=== PATIENT | female | born 1965 | race Caucasian/White ===

== ENCOUNTER 2018-11-27 13:06 | Outpatient (CLI) | payer BC ==
[~2018-11-27 13:06] MED LIST: Iopamidol 370 76% 100 ML VIAL ONE
--- NOTE | 2018-11-27 15:07 | CT ---
CT ABDOMEN AND PELVIS WITH AND WITHOUT IV CONTRAST: 11/27/2018 PROVIDED CLINICAL HISTORY: Microhematuria. FINDINGS: The visualized lung bases are free of significant opacity. There is no evidence for urinary tract calculi or hydronephrosis. The kidneys demonstrate no evidenc e for mass. The delayed images demonstrate no evidence for a filling defect involving the renal laura ecting systems, segmentally opacified ureters, or urinary bladder. The liver, spleen, pancreas, and adrenal glands demonstrate an unremarkable CT appearance. There is enlargement of the uterus with multiple foci of hypodensity within the myometrium, likely re flecting fibroids. There is no bowel dilatation, inflammatory fat stranding, free fluid, or lymph no de enlargement apparent. The osseous structures demonstrate no concerning osteoblastic or osteolytic lesions. IMPRESSION: 1. An etiology for the patient's hematuria is not evident on this examination. 2. Enlargement and probable fibroid change involving the uterus. POS: [facility]
== END 2018-11-27 13:07 | disposition home or self-care (01) ==
LOC: BICCT 13:06
PROVIDERS: ATTEND Urology
DX: R35.0 Frequency of micturition (principal); R39.11 Hesitancy of micturition; N85.2 Hypertrophy of uterus
CPT/HCPCS: 74178; Q9967

== ENCOUNTER 2019-01-07 09:30 | Inpatient (IN) | payer BC ==
--- NOTE | 2019-01-07 08:13 | HP ---
She is scheduled for a robotic hysterectomy on 01/08/2019. HISTORY OF PRESENT ILLNESS: Ms. Xiong is a 53-year-old white female, G0, who presented for evaluation in my office for recently diagnosed large uterine fibroids seen on CAT scan performed by Dr. Coughlin of [facility]. The patient has been evaluated for noticing increasing urinary frequency and pelvic pressure symptoms over the past year or so. During evaluation, CAT scan was performed showing her to have enlarged uterus with no adnexal masses. She has also been having some postmenopausal bleeding and had endometrial biopsy performed in my office on 12/04, showed her to have a benign uterine polyp. She had a pelvic ultrasound in my office showing her uterus to measure 12.7 x 10.7 x 10 cm with 8.6 x 6.5 cm fundal fibroid and 2.5 x 1.8 x 2.3 cm anterior fibroid. There were no adnexal masses seen. She also reports a normal Pap smear past year by her primary care provider, Dr. Luna Marlow. Due to these findings and her symptoms of the pelvic fullness and urinary frequency attributable to the pelvic mass effect of the uterus in the lower uterine segment polyp, she desires definitive surgical therapy. PAST MEDICAL HISTORY: Significant for chronic hypertension and hypothyroidism and also gout in the past. PAST SURGICAL HISTORY: Elective tubal ligation. She has also had tonsillectomy in the past. FAMILY HISTORY: Significant for carcinoma in situ esophagus in her father and lung cancer in her father. Her mother has had some malignant skin cancers. SOCIAL HISTORY: She is a nonsmoker. No excessive alcohol use. She is . CURRENT MEDICATIONS: 1. Allopurinol 100 mg tablet, take 1-1/2 tablets once daily for gout prevention. 2. She also is on levothyroxine 150 mcg daily. 3. Lisinopril 20 mg/hydrochlorothiazide 12.5 mg daily for hypertension. PHYSICAL EXAMINATION: VITAL SIGNS: Her height is 5 feet 4 inches, weight 262 pounds with a BMI of 45. Blood pressure is 120/72, pulse 80, and respirations are 18, O2 saturation on room air is 98%. HEENT: Within normal limits. Clear to auscultation. HEART: Regular rate and rhythm. S1 and S2 heart sounds. No murmurs, rubs, or gallops. ABDOMEN: Soft, nondistended. Obese. No past splenomegaly. PELVIC: Vulva and vagina had no lesions of bladder. Urethra had no lesions. Vagina had no lesions. No evidence of rectocele or cystocele. Cervix had no visible lesion. Her uterus was enlarged fibroid and minimal mobility. Endometrial biopsy was performed at this visit, which she sounded that her uterus to 11 cm with tissue being removed. ASSESSMENT: This is a 53-year-old white female, G0, now with some postmenopausal spotting with endometrial biopsy showing uterine polyp. She also has approximately 14-16 week size uterine fibroids with pelvic mass effect symptoms including increased urinary frequency and pelvic pressure. In light of these findings, she is desiring definitive surgical therapy and we plan for robotic total laparoscopic hysterectomy with bilateral salpingo-oophorectomy with the ExCITE procedure for removal of the uterus and specimens due to the size. Risks and benefits of procedure had been discussed in detail and she is set up for surgery on 01/08/2019. Job ID: [id number]
[2019-01-07 10:50] VITALS: BMI 43.2
[2019-01-07 12:10] LABS: Hemoglobin 12.8 g/dL (12.0-16.0); Mean Corpuscular HGB CONC 33.7 g/dL (32.0-36.0); Mean Corpuscular Hemoglobin 30.1 pg (27.0-31.0); Mean Corpuscular Volume 89.3 fL (78.0-98.0); Mean Platelet Volume 6.8 fL (7.4-10.4); Platelet Count 299 thou/uL (130-400); RBC Distribution Width 12.8 % (11.5-14.5); Red Blood Cell (RBC) Count 4.24 mill/uL (4.20-5.40); White Blood Cell (WBC) Count 6.8 thou/uL (4.8-10.8)
[2019-01-08] MEDS ORDERED: CeleCOXIB 100 MG CAP ONE ×2 (09:35→09:36)
[2019-01-08] MEDS ORDERED: Famotidine/PF 20 mg/2ml Vial ONE (09:35)
[2019-01-08] MEDS ORDERED: Gabapentin 300 MG CAP ONE (09:35)
[2019-01-08] MEDS ORDERED: Midazolam HCl 2 mg/2 ml Vial ONE ×2 (09:50→09:58)
[2019-01-08] MEDS ORDERED: Bupivacaine HCl 0.5%/Epinephrine 1:200,000/PF 30 ml Vial ONE (09:53)
[2019-01-08] MEDS ORDERED: Fentanyl 100 MCG/2 ML VIAL ONE ×3 (09:58→14:50)
[2019-01-08 10:32] LABS: Anion Gap 15 mmol/L (10-20); BUN (Urea Nitrogen) 15 mg/dL (9.8-20.1); Calc. Creatinine Clearance 147 mL/min (70-130); Calcium 9.7 mg/dL (7.8-10.44); Carbon Dioxide 28 mmol/L (22-29); Chloride 104 mmol/L (98-107); Estimated GFR-MDRD 72; Glucose 108 mg/dL (70-105); Potassium 3.8 mmol/L (3.5-5.1); Sodium 143 mmol/L (136-145)
[2019-01-08] MEDS ORDERED: Ketorolac Tromethamine 30 MG/ML VIAL ONE (11:18)
[2019-01-08] MEDS ORDERED: Rocuronium Bromide 10 MG/ML (10ML VIAL) ONE (11:18)
[2019-01-08] MEDS ORDERED: Dexamethasone 20 MG/5 ML VIAL ONE (11:18)
[2019-01-08] MEDS ORDERED: Ondansetron PF 4 MG/2 ML Vial ONE (11:18)
[2019-01-08] MEDS ORDERED: ePHEDrine 50 MG/ML VIAL ONE (11:18)
[2019-01-08] MEDS ORDERED: Lidocaine 1% PF 5 ML VIAL ONE (11:18)
[2019-01-08] MEDS ORDERED: Glycopyrrolate 0.2 MG/ML 5 ML SYRINGE ONE (11:18)
[2019-01-08] MEDS ORDERED: PROPOFOL 200 MG/20 ML VIAL ONE (11:18)
[2019-01-08] MEDS ORDERED: diphenhydrAMINE 25 MG CAP PO PRN (13:22)
[2019-01-08] MEDS ORDERED: traMADol HCl 50 MG TAB PO PRN ×2 (13:22)
[2019-01-08] MEDS ORDERED: Zolpidem Tartrate 5 MG TAB PO PRN (13:22)
[2019-01-08] MEDS ORDERED: Bisacodyl 10 MG SUPP PR PRN (13:22)
[2019-01-08] MEDS ORDERED: Simethicone Chewable 80 MG TAB PO PRN (13:22)
[2019-01-08] MEDS ORDERED: Promethazine HCl 25 MG/ML VIAL IM PRN ×2 (13:22→13:35)
[2019-01-08] MEDS ORDERED: Morphine 4 MG/ML VIAL SLOW IVP PRN (13:22)
[2019-01-08] MEDS ORDERED: Ondansetron PF 4 MG/2 ML Vial IVP PRN (13:22)
[2019-01-08] MEDS ORDERED: Estradiol 0.05mg/24 Hour Patch (Weekly) TD SCH (13:30)
[2019-01-08] MEDS ORDERED: Promethazine HCl 25 MG/ML VIAL SLOW IVP PRN (13:35)
[2019-01-08] MEDS ORDERED: Ondansetron HCl/PF 4 MG/2 ML Vial IVP PRN (13:35)
[2019-01-08] MEDS ORDERED: Promethazine HCl 25 MG/ML VIAL ONE (14:01)
[2019-01-08] MEDS: Ketorolac Tromethamine 30 MG/ML VIAL IVP SCH (17:55)
[2019-01-08] MEDS: Acetaminophen 1,000 MG in Premix Bag 1 BAG IVPB SCH (17:55)
[2019-01-08] MEDS ORDERED: Allopurinol 100 MG TAB PO SCH (21:00)
[2019-01-08] MEDS ORDERED: Lisinopril/Hydrochlorothiazide 20 mg/12.5 mg Tablet PO SCH (21:00)
[2019-01-08] MEDS: Sodium Chloride 0.9% 1,000 ML IV SCH (23:52)
[2019-01-09] MEDS: Acetaminophen 1,000 MG in Premix Bag 1 BAG IVPB SCH ×3 (00:37→11:51)
[2019-01-09] MEDS: Ketorolac Tromethamine 30 MG/ML VIAL IVP SCH ×3 (00:37→11:52)
[2019-01-09] MEDS ORDERED: Levothyroxine 150 MCG TAB PO SCH (06:00)
[2019-01-09 06:17] LABS: Hemoglobin 11.5 g/dL (12.0-16.0); Mean Corpuscular HGB CONC 32.8 g/dL (32.0-36.0); Mean Corpuscular Hemoglobin 30.7 pg (27.0-31.0); Mean Corpuscular Volume 93.6 fL (78.0-98.0); Mean Platelet Volume 6.6 fL (7.4-10.4); Platelet Count 251 thou/uL (130-400); Red Blood Cell (RBC) Count 3.74 mill/uL (4.20-5.40); White Blood Cell (WBC) Count 13.4 thou/uL (4.8-10.8)
--- NOTE | 2019-01-09 08:30 | OP ---
DATE OF PROCEDURE: 01/08/2019 PREOPERATIVE DIAGNOSES: 1. A 53-year-old white female, G0 with symptomatic 16- week uterine fibroids with pelvic pain and discomfort. 2. Urinary frequency secondary to pelvic mass effect. 3. Abnormal uterine bleeding with endometrial biopsy showing uterine polyps. POSTOPERATIVE DIAGNOSES: 1. A 53-year-old white female, G0 with symptomatic 16- week uterine fibroids with pelvic pain and discomfort. 2. Urinary frequency secondary to pelvic mass effect. 3. Abnormal uterine bleeding with endometrial biopsy showing uterine polyps. PROCEDURES PERFORMED: Robotic total laparoscopic hysterectomy and bilateral salpingo-oophorectomy with ExCITE procedure for removal of specimen. RUNNING RIGGER SURGEON: Benjamin Squires DO, MS. ANESTHESIA: General endotracheal. ESTIMATED BLOOD LOSS: 50 mL. COMPLICATIONS: None. COUNTS: Correct x2. ANTIBIOTICS: 2 g Ancef, on-call to the OR. FINDINGS: 1. Normal premenopausal appearing ovaries and tubes. Previous status post tubal ligation procedures. 2. Enlarged uterus with intramural fibroids approximately 16-week size. 3. Clear urine present in Rea catheter postprocedure and bladder was watertight to distention over 300 mL of fluid postprocedure. DISPOSITION: Recovery room, stable. DESCRIPTION OF PROCEDURE: The patient previously received informed consent in regard to surgery. She was taken back to the operating room, where she received a general endotracheal anesthetic agent without complications. She was placed in dorsal lithotomy position with the use of Cali stirrups and prepped and draped in usual sterile fashion. At this time, a Rea catheter was placed and a side-arm speculum was placed in the vagina. Anterior lip of the cervix was grasped with single-tooth tenaculum. The uterus sounded to 11 cm and a size 10 cm JHONY uterine manipulator with a 3.5 cm cervical cup was placed in usual fashion. Speculum and tenaculum removed. Attention was then turned to the abdomen, where perspective trocar sites were infiltrated with 0.5% Marcaine with epinephrine. A supraumbilical incision was made. Veress needle was entered into the peritoneal cavity. The patient's pressure was noted to be less than 5 mm of pressure. The abdomen was insufflated with the patient's pressure of 15. Veress needle was . A size 12-mm trocar was then placed in the vaginal vault and a laparoscope was introduced through the trocar sleeve confirming proper entry. Additional bilateral lower quadrant 8 mm robotic trocars along with the right upper quadrant 11 mm trocar was placed under laparoscopic guidance. The pelvis was inspected previously mentioned findings. The supraumbilical incision, fascia was extended to approximately 2.5 cm, allowing placement of the Dash retractor with the GelPOINT and the trocars were then placed through the GelPOINT and the laparoscope was then introduced through trocar sleeve. During this time also, the 16 cm size Boubacar's endobag that had been prepared and placed accordingly up in the right upper quadrant in the patient's abdomen for future use. The uterus was then elevated from the pelvis and the bipolar fenestrated cautery and monopolar scissors had been placed in the operative ports of the robot. I proceeded to carry out the procedure with surgical sales representative and assistants remained at the bedside. The left ovary and fallopian tube were grasped by my registered dental assistant rda. IP ligament was identified, coagulated and transected with monopolar scissors. Continued dissection, coagulation and transection of broad ligament hugging specimen was carried out until the left round ligament was reached. It was coagulated and transected and the anterior leaf of broad ligament was entered. The uterine vessels were skeletonized both anteriorly and posteriorly. During this time, along with an incision of the vesicouterine peritoneal flow, dissecting the bladder atraumatically past the cervical vaginal angle. The internal cervical os was skeletonized and cauterized. This was repeated in likewise fashion on the patient's right side of the uterus where again the IP ligament had been identified, was coagulated and transected and serial coagulation of the broad ligament hugging the posterior specimen was carried out until the right round ligament was reached. It was coagulated and transected. Completion of the vesicouterine peritoneal incision and dissection was carried out, dropping the bladder atraumatically past the cervical vaginal region. Again, the uterine vessels were skeletonized and coagulated in the internal cervical os region. We then proceeded to carry out the colpotomy starting at the 12 to 3 and 12 to 9 o'clock position. The uterus was very heavy posteriorly and made somewhat difficult to visualize the posterior cuff and we were able to do this by repositioning at multiple times with a tenaculum by my registered dental assistant rda and grasped in the uterine body, elevating it and then we were able to come around the backside with the good visualization completing a posterior colpotomy from 6 to 3 and 6 to 9 o'clock position. The specimen was then released from the abdomen. The pedicle sites were inspected and noted to be hemostatic. A V-Loc was then brought in through the registered dental assistant rda port and Monopolar scissors were utilized, removed, and . The vaginal cuff was then closed in full thickness closure starting at the right angle to the left angle back towards midline with good hemostasis and approximation. The bladder was checked and distended and noted to be a watertight to over 300 mL of distention at this time. The suture along with needle were then removed through the right upper quadrant registered dental assistant rda port. Pedicle sites were inspected. Hemostasis confirmed. At this time, the endobag that had been prepared in accordion folding fashion with sutures, which brought down the pelvis. The stay sutures were cut by my registered dental assistant rda with Endo Shavonne. The endobag was opened and we were able to easily place the specimen in the endobag. A pre-tied area of the bag along with a loop suture that had been placed directly across was positioned and the suture was brought through the loop, closing the bag and confirming with the specimen was inside the Aces bag. My registered dental assistant rda then brought it through the GelPOINT, a grasper grabbing the suture, securing suture of the bag and brought that out through the GelPOINT. We then undocked the robot and the Boubacar's bag with the specimen brought through the GelPOINT to the supraumbilical area. The Dash O retractor that was placed through the GelPOINT was removed and it was placed inside the endobag to protect the endobag during the morcellation process. The specimen was removed in its entirety with the ExCITE procedure with the cutting technique removing the specimen in strips and sending for final pathology. Once the endobag had been removed with specimen, it was removed out of the abdomen along with the Dash O retractor. The fascia was closed in the supraumbilical defect. The edges of the fascia were grasped with 2 Ines clamps. A running continuous 0 Vicryl suture was placed for fascial closure in the supraumbilical region along with skin closure with 4-0 Monocryl and Dermabond. The remaining trocar sites were closed with 4-0 Monocryl subcuticular with Dermabond during hemostasis. The vaginal vault was checked by my registered dental assistant rda and no active bleeding in the vaginal vault was noted on a sponge stick. The patient was then awakened from anesthesia and transferred to recovery room in stable condition. Job ID: [id number]
[2019-01-09] MEDS: Sodium Chloride 0.9% 1,000 ML IV SCH (09:13)
[2019-01-09 11:46] VITALS: BP 136/74; TEMP 97.8
[2019-01-09] MEDS: Cepastat Lozenges 1 LOZ PO PRN ×2 (11:52→14:27)
--- NOTE | 2019-01-09 15:37 | DIS ---
DATE OF ADMISSION: 01/08/2019 DATE OF DISCHARGE: 01/09/2019 DIAGNOSES: 1. Symptomatic 16-week uterine fibroids with pelvic pain and urinary frequency. 2. History of postmenopausal bleeding with endometrial biopsy of uterine polyps. PROCEDURES PERFORMED: Robotic total laparoscopic hysterectomy with bilateral salpingo-oophorectomy with ExCITE procedure for removal of the pathologic specimens. SUMMARY OF HOSPITAL COURSE: Ms. Xiong is a 53-year-old white female, G0 with symptomatic 16-week uterine fibroids. She underwent a robotic BARBARA-BSO with ExCITE procedure on 01/08. Postoperatively, the patient did well. She was ambulating, voiding, and tolerating a regular diet on postop day #1. Hematocrit postoperatively day #1 was 35%. Vital signs were stable. She had adequate pain control with ibuprofen and tramadol. She was discharged home on the afternoon of postop day #1 and prescription also for Climara patch 0.05 mg to use weekly was also given. She has a followup in 2 and 6 weeks. Pathology is pending at the time of this dictation. Job ID: [id number]
[2019-01-13] MEDS ORDERED: Ibuprofen 800 MG TAB PO SCH (22:00)
== END 2019-01-09 14:40 | disposition home or self-care (01) | DRG 743 ==
LOC: SURG A 01-08 08:25 → 3SE 01-08 17:17
PROVIDERS: ADMIT Obstetrics & Gynecology; ATTEND Obstetrics & Gynecology
PROC: 0UT94ZZ Resection of Uterus, Percutaneous Endoscopic Approach (ICD-10-PCS; principal; 2019-01-08)
PROC: 0UT74ZZ Resection of Bilateral Fallopian Tubes, Percutaneous Endoscopic Approach (ICD-10-PCS; 2019-01-08)
PROC: 0UT24ZZ Resection of Bilateral Ovaries, Percutaneous Endoscopic Approach (ICD-10-PCS; 2019-01-08)
PROC: 8E0W4CZ Robotic Assisted Procedure of Trunk Region, Percutaneous Endoscopic Approach (ICD-10-PCS; 2019-01-08)
DX: D25.9 Leiomyoma of uterus, unspecified (principal); N95.0 Postmenopausal bleeding; N84.0 Polyp of corpus uteri; R35.0 Frequency of micturition
CPT/HCPCS: 36415; 80048; 85027; 86850; 86900; 86901; 88307; 93005; 93010; J0131; J0670; J1100; J1885; J2001; J2250; J2270; J2405; J2550; J2704; J3010; J3490; S0028

== ENCOUNTER 2020-04-08 07:37 | Outpatient (CLI) | payer BC ==
--- NOTE | 2020-04-08 08:38 | ULT ---
US Abdominal: 04/08/2020 12:00 AM CLINICAL HISTORY: Left upper quadrant abdominal pain. STUDY: Complete abdominal ultrasound COMPARISON: None. FINDINGS: Liver: Size: Normal. Echogenicity: Hyperechoic consistent with hepatic steatosis. Contour: Smooth. Mass: None. Common bile duct: 4 mm Gallbladder: Normal. Pancreas: Head, body, and tail appear normal. Inferior vena cava: Normal in caliber Aorta: Normal in caliber Spleen: No focal lesions. Spleen measuring 11.8 cm in length. Right kidney: No pelvicalyceal dilatation. Right kidney measuring 10.4 cm in length. Left kidney: No pelvicalyceal dilatation. Left kidney measuring 12.2 cm in length. IMPRESSION: Fatty liver
== END 2020-04-08 07:38 | disposition home or self-care (01) ==
LOC: SCSULT 07:37
PROVIDERS: ATTEND Family Medicine
DX: R10.9 Unspecified abdominal pain (principal); K76.0 Fatty (change of) liver, not elsewhere classified
CPT/HCPCS: 93975

== ENCOUNTER 2020-04-29 15:54 | Outpatient (CLI) | payer BC ==
--- NOTE | 2020-05-08 15:47 | MMO ---
Bilateral MAMMO Bilat Screen [facility]. CLINICAL HISTORY: Patient is 54 years old and is seen for screening. The patient has no family history of breast cancer. The patient has no personal history of cancer. The patient has a history of Ultrasound Guided Core Biopsy - benign - PT UNSURE WHEN OR WHAT SIDE. VIEWS: The views performed were: bilateral craniocaudal with tomosynthesis; bilateral mediolateral oblique with tomosynthesis; and right exaggerated craniocaudal. FILMS COMPARED: The present examination has been compared to prior imaging studies performed at [facility] on 06/04/2009, 07/15/2009 and 11/16/2016. This study has been interpreted with the assistance of computer-aided detection. MAMMOGRAM FINDINGS: There are scattered fibroglandular densities. Finding 1: There is a stable mass seen in the right breast at 11 o'clock. Finding 2: There are stable benign appearing calcifications seen in both breasts. There are no suspicious masses, suspicious calcifications, or new areas of architectural distortion. IMPRESSION: THERE IS NO MAMMOGRAPHIC EVIDENCE OF MALIGNANCY. A ROUTINE FOLLOW-UP MAMMOGRAM IN 1 YEAR IS RECOMMENDED. THE RESULTS OF THIS EXAM WERE SENT TO THE PATIENT. ACR BI-RADS Category 2 - Benign finding MAMMOGRAPHY NOTE: 1. A negative mammogram report should not delay a biopsy if a dominant of clinically suspicious mass is present. 2. Approximately 10% to 15% of breast cancers are not detected by mammography. 3. Adenosis and dense breasts may obscure an underlying neoplasm. Reported by: BERNARD ULRICH MD Electonically Signed: [id number]
== END 2020-04-29 15:55 | disposition home or self-care (01) ==
LOC: BICMAMMO 15:54
PROVIDERS: ATTEND Family Medicine
DX: Z12.31 Encounter for screening mammogram for malignant neoplasm of breast (principal); Z91.89 Other specified personal risk factors, not elsewhere classified
CPT/HCPCS: 77063; 77067